=== PATIENT | male | born 1990 | race Caucasian/White ===

== ENCOUNTER 2023-09-26 15:23 | Emergency (ER) | payer OTHER ==
[~2023-09-26] VITALS: Ht 175.3 cm; Wt 98.6 kg
[2023-09-26] MEDS ORDERED: BENZTROPINE MESY2 MG PO (18:55)
[2023-09-26] MEDS ORDERED: HALOPERIDOL10 MG PO (18:55)
[2023-09-26] MEDS ORDERED: BUPROPION XL150 MG PO (18:56)
[2023-09-26 20:08] VITALS: BP 117/84
== END 2023-09-26 20:08 | disposition home or self-care (01) ==
LOC: ED 15:23
DX: H60.91 Unspecified otitis externa, right ear (principal); Z79.899 Other long term (current) drug therapy
CPT/HCPCS: 99282

== ENCOUNTER 2023-10-30 20:37 | Emergency (ER) | payer OTHER ==
[~2023-10-30] VITALS: Ht 180.3 cm; Wt 99.2 kg
[~2023-10-30 20:37] MED LIST: BENZTROPINE MESY2 MG PO; BUPROPION XL150 MG PO; HALOPERIDOL10 MG PO
[2023-10-30 21:45] VITALS: BP 121/83
== END 2023-10-30 21:45 | disposition home or self-care (01) ==
LOC: ED 20:37
DX: S93.401A Sprain of unspecified ligament of right ankle, initial encounter (principal); M77.31 Calcaneal spur, right foot; X50.1XXA Overexertion from prolonged static or awkward postures, initial encounter; Z79.899 Other long term (current) drug therapy
CPT/HCPCS: 73610